=== PATIENT | female | born 1990 | race Hispanic/Latino ===

== ENCOUNTER 2022-04-16 06:38 | Day surgery (SDC) | payer BC, OTHER ==
[2022-04-15 14:57] LABS: BASOPHILS % (AUTO) 0.4 % (0.0-5.0); EOSINOPHILS % (AUTO) 2.7 % (0.0-8.0); MEAN CORPUSCULAR HEMOGLOBIN 28.6 pg (27.0-33.0); MEAN CORPUSCULAR HGB CONC 32.1 g/dL (32.0-36.0); MEAN CORPUSCULAR VOLUME 89.2 fL (79-99); MONOCYTES % (AUTO) 5.7 % (3.0-13.0); NEUTROPHILS % (AUTO) 62.4 % (40.0-77.0); PLATELET COUNT (AUTO) 316 K/uL (130-400); RED BLOOD CELL COUNT(AUTO) 4.26 MIL/uL (4.00-5.50); RED CELL DISTRIBUTION WIDTH 12.6 % (11.0-15.5); WHITE BLOOD COUNT (AUTO) 8.9 K/uL (4.8-10.8)
[~2022-04-16] VITALS: Ht 160 cm; Wt 127.6 kg
[~2022-04-16 06:38] MED LIST: CEFAZOLIN SODIUM 3 GM in DEXTROSE 5%-WATER 100 ML IVP SCH; LACTATED RINGERS 1000ML 1,000 ML IV SCH
[2022-04-16 07:00] VITALS: BP 143/76
[2022-04-16] MEDS ORDERED: CEFAZOLIN SODIUM 1 GM VIAL ONE (07:02)
[2022-04-16] MEDS ORDERED: FENTANYL CITRATE PF 50 MCG/1 ML 2ML VIAL ONE (07:23)
[2022-04-16] MEDS ORDERED: PROPOFOL 10 MG/ML 20ML VIAL IV ONE (07:23)
[2022-04-16] MEDS ORDERED: MIDAZOLAM HCL 1 MG/ML 2ML VIAL ONE (07:23)
[2022-04-16] MEDS ORDERED: MEPERIDINE-PF 50 MG/ML SYG ONE (07:29)
[2022-04-16] MEDS ORDERED: SUCCINYLCHOLINE CHLORIDE 20 MG/ML 10 ML VIAL ONE (07:31)
[2022-04-16] MEDS ORDERED: ROCURONIUM 10MG/1ML SYR 10 MG/ML ML ONE (07:31)
[2022-04-16] MEDS ORDERED: OXYTOCIN 10 USP UNITS/ML ONE (07:48)
[2022-04-16 08:55] VITALS: BP 118/73
[2022-04-16 09:10] VITALS: BP 109/65
[2022-04-16 09:20] VITALS: BP 110/60
== END 2022-04-16 09:30 | disposition home or self-care (01) ==
LOC: DAH 06:38
PROVIDERS: ATTEND Obstetrics & Gynecology
DX: O02.1 Missed abortion (principal); E66.01 Morbid (severe) obesity due to excess calories; Z79.01 Long term (current) use of anticoagulants; Z79.899 Other long term (current) drug therapy; Z98.890 Other specified postprocedural states; Z98.891 History of uterine scar from previous surgery
CPT/HCPCS: 36415 ×2; 59820; 84702; 84703; 85025; 86850; 86900; 86901; 87635; A4215; A4221; A4222; A4223; A4510; A4600; A4663; C9803; J0330; J0690 ×2; J2175; J2250; J2590; J2704; J3010; J7060; J7120 ×2